=== PATIENT | male | born 1960 | race Caucasian/White ===

== ENCOUNTER 2021-07-16 10:20 | Observation (INO) | payer BC ==
[2021-07-16] MEDS ORDERED: MECLIZINE HCL 25 MG TABLET (FP) PO ONE (11:17)
[2021-07-16] MEDS ORDERED: ONDANSETRON 4 MG/2 ML VIAL IVPB ONE (11:17)
[2021-07-16] MEDS ORDERED: LACTATED RINGERS SOLUTION 1000 ML INFUS.BAG IV ONE (11:17)
[2021-07-16] MEDS ORDERED: ACETAMINOPHEN 1000 MG/100 ML BAG IVPB ONE (11:21)
[2021-07-16] MEDS ORDERED: MECLIZINE HCL 25 MG TABLET (FP) ONE (11:23)
[2021-07-16] MEDS ORDERED: ONDANSETRON 4 MG/2 ML VIAL ONE ×2 (11:23→13:22)
[2021-07-16 12:17] LABS: BASO % 0.6 % (0-2.0); EOS % 0.1 % (0-4.5); HEMATOCRIT 41.8 % (35.4-49); HEMOGLOBIN 14.4 GM/dL (11.7-16.9); MCH 29.7 pg (25.7-33.7); MCHC 34.4 g/dl (32.0-35.9); MEAN CELL VOLUME 86.4 fl (80-96); MEAN PLT VOLUME 9.9 fl (7.5-11.1); NEUT % 85.3 % (42.8-82.8); PLATELET COUNT 192 10^3/uL (134-434); RBC 4.84 M/mm3 (4.00-5.60); WHITE BLOOD COUNT 8.8 K/mm3 (4.0-10.0)
[2021-07-16] MEDS ORDERED: ACETAMINOPHEN INJECTION 100 ML IVPB ONE (12:43)
[2021-07-16 12:48] LABS: CALCIUM 9.5 mg/dL (8.5-10.1)
[2021-07-16 12:49] LABS: ALBUMIN 4.2 g/dl (3.4-5.0); BLOOD UREA NITROGEN 13.9 mg/dL (7-18)
[2021-07-16 12:53] LABS: BILIRUBIN,TOTAL 0.5 mg/dL (0.2-1); TOT PROT 7.4 g/dl (6.4-8.2)
[2021-07-16] MEDS ORDERED: ONDANSETRON 4 MG/2 ML VIAL IVPUSH ONE (13:14)
[2021-07-16] MEDS ORDERED: ACETAMINOPHEN 325 MG TABLET (FP) PO PRN (18:17)
[2021-07-16] MEDS ORDERED: MECLIZINE HCL 25 MG TABLET (FP) PO PRN (18:21)
[2021-07-16] MEDS ORDERED: ALBUTEROL SO4 2.5/IPRATROPIUM 0.5 INH SOL 3 ML VIAL.NEB. NEB PRN (18:22)
[2021-07-16 19:01] LABS: PH,URINE 8.5 (5.0-8.0); URINE APPEARANCE CLEAR; URINE BILIRUBIN NEGATIVE (NEGATIVE); URINE COLOR YELLOW; URINE GLUCOSE (UA) NEGATIVE (NEGATIVE); URINE KETONE NEGATIVE (NEGATIVE); URINE LEUK ESTERASE NEGATIVE (NEGATIVE); URINE NITRITE NEGATIVE (NEGATIVE); URINE PROTEIN TRACE (NEGATIVE); URINE UROBILINOGEN 0.2 mg/dL (0.2-1.0)
[2021-07-17 01:43] VITALS: BMI 30.5
[2021-07-17 09:42] LABS: HEMATOCRIT 40.7 % (35.4-49); HEMOGLOBIN 14.1 GM/dL (11.7-16.9); MCH 30.1 pg (25.7-33.7); MCHC 34.7 g/dl (32.0-35.9); MEAN CELL VOLUME 86.9 fl (80-96); MEAN PLT VOLUME 10.1 fl (7.5-11.1); PLATELET COUNT 199 10^3/uL (134-434); RBC 4.69 M/mm3 (4.00-5.60); RDW 13.6 % (11.9-15.9); WHITE BLOOD COUNT 8.7 K/mm3 (4.0-10.0)
[2021-07-17] MEDS: LOSARTAN POTASSIUM 50 MG TABLET PO SCH (09:46)
[2021-07-17] MEDS: MECLIZINE HCL 25 MG TABLET (FP) PO SCH ×3 (09:46→17:42)
[2021-07-17] MEDS: ENOXAPARIN NA (PORCINE) 40 MG/0.4 ML DISP.SYRIN SQ SCH (09:47)
[2021-07-17 09:57] LABS: CALCIUM 9.6 mg/dL (8.5-10.1)
[2021-07-17 09:58] LABS: BLOOD UREA NITROGEN 13.1 mg/dL (7-18)
[2021-07-17] MEDS ORDERED: VERAPAMIL HCL 240 MG E.R. TABLET PO SCH ×2 (10:00→22:00)
[2021-07-17] MEDS ORDERED: PATIENT'S OWN MEDICATION (NON-FORMULARY) (Losartan Potassium 100 MG) PO SCH (10:00)
[2021-07-17] MEDS ORDERED: MONTELUKAST NA 10 MG TABLET PO SCH ×2 (10:00→22:00)
[2021-07-17] MEDS ORDERED: VERAPAMIL 240 MG PO SCH (10:00)
[2021-07-17 10:01] LABS: CREATININE 1.1 mg/dL (0.55-1.3)
[2021-07-17 10:04] LABS: CHOLESTEROL 176 mg/dL (50-200); TRIGLYCERIDES 217 mg/dL (0-150)
[2021-07-17 10:05] LABS: LDL CHOLESTEROL (ONLY SJRH) 92 mg/dL (5-100)
[2021-07-17 10:08] LABS: HDL CHOLESTEROL 50 mg/dL (40-60)
[2021-07-17] MEDS ORDERED: ONDANSETRON 4 MG/2 ML VIAL IVPUSH PRN (18:17)
[2021-07-18] MEDS: MECLIZINE HCL 25 MG TABLET (FP) PO SCH ×3 (00:17→11:29)
[2021-07-18] MEDS: LOSARTAN POTASSIUM 50 MG TABLET PO SCH (09:53)
[2021-07-18] MEDS: ENOXAPARIN NA (PORCINE) 40 MG/0.4 ML DISP.SYRIN SQ SCH (10:16)
[2021-07-18 11:41] VITALS: BP 131/66; PULSE 67; TEMP 98
== END 2021-07-18 13:57 | disposition home or self-care (01) ==
LOC: JER 10:20 → JERBED 14:47 → UNDOADMOB 14:47 → OBSVTOIN 18:18 → INTOOBSV 18:18 → JERBED 07-17 00:44 → J8W 07-17 00:44 → JERBED 07-18 10:26
PROVIDERS: ADMIT Internal Medicine; ATTEND Nurse Practitioner Acute Care
PROC: 3E033NZ Introduction of Analgesics, Hypnotics, Sedatives into Peripheral Vein, Percutaneous Approach (ICD-10-PCS; principal; 2021-07-18)
PROC: 3E023GC Introduction of Other Therapeutic Substance into Muscle, Percutaneous Approach (ICD-10-PCS; 2021-07-18)
PROC: 3E0337Z Introduction of Electrolytic and Water Balance Substance into Peripheral Vein, Percutaneous Approach (ICD-10-PCS; 2021-07-18)
PROC: 3E033GC Introduction of Other Therapeutic Substance into Peripheral Vein, Percutaneous Approach (ICD-10-PCS; 2021-07-18)
DX: R42 Dizziness and giddiness (principal); R11.2 Nausea with vomiting, unspecified; J44.9 Chronic obstructive pulmonary disease, unspecified; I10 Essential (primary) hypertension; Z88.6 Allergy status to analgesic agent; E66.9 Obesity, unspecified; Z68.30 Body mass index [BMI] 30.0-30.9, adult; Z87.891 Personal history of nicotine dependence; Z29.9 Encounter for prophylactic measures, unspecified
CPT/HCPCS: 36415; 70450-TC; 70551-TC; 71045-TC-FY; 80048; 80053; 80061; 81003; 83036; 83690; 84439; 84443; 84484; 85025; 85027; 87086; 93005; 93010; 93880-TC; 99285-25; C9803; G0378; U0003; U0005